=== PATIENT | female | born 1995 | race Caucasian/White ===

== ENCOUNTER 2017-09-12 20:46 | Emergency (ER) | payer OTHER ==
[2017-09-12] MEDS: FAMOTIDINE 20 MG TABLET. PO (21:05)
[2017-09-12 21:48] LABS: INFLUENZA A PATIENT NEGATIVE (NEGATIVE); INFLUENZA B PATIENT NEGATIVE (NEGATIVE)
[2017-09-12 21:49] LABS: OBC FLU VALID
== END 2017-09-12 21:56 | disposition home or self-care (01) ==
LOC: ER 20:46
DX: J06.9 Acute upper respiratory infection, unspecified (principal); Z88.0 Allergy status to penicillin
CPT/HCPCS: 87804; 87804-59; 99284